=== PATIENT | female | born 1970 | race Caucasian/White ===

== ENCOUNTER 2020-08-26 09:27 | Emergency (ER) | payer OTHER, MEDICAID, SELFPAY ==
--- NOTE | 2020-08-26 09:39 | DI.RAD.S_ITS ---
PROCEDURE: XR FOOT LT MIN 3V INDICATIONS: fall TECHNIQUE: 3 views of the foot were acquired. COMPARISON: [facility], CR, XR FOOT 3VW LT, 03/07/2015, 3:18. FINDINGS: Bones: Nondisplaced fracture of the base of the 5th metatarsal approximately 1.4 centimeters from the base. There is mild adjacent soft tissue swelling. There is questionable hallux valgus on these nonweightbearing views. Mild degenerative changes of the 1st metatarsophalangeal joint with small osseous and soft tissue bunion formation. Soft tissues: No tibiotalar joint effusion. Achilles tendon appears normal. Mild soft tissue swelling adjacent to the base of the 5th metatarsal. IMPRESSION: Nondisplaced proximal 5th metatarsal fracture approximately 1.4 centimeters from the base. Likely mild hallux valgus with mild degenerative changes of the 1st metatarsophalangeal joint along with bunion formation. Dictated by: Nima Kennedy D.O. on 08/26/2020 at 8:54 Approved by: Nima Kennedy D.O. on 08/26/2020 at 8:57
[2020-08-26 09:40] VITALS: BP 184/83; PULSE 86; RESP 14; TEMP 36.3; O2SAT 99
[2020-08-26] MEDS: ACETAMINOPHEN 325 MG TABLET 650 MG PO (10:10)
[2020-08-26] MEDS: IBUPROFEN 400 MG TABLET PO (10:10)
[2020-08-26 11:15] VITALS: PULSE 70
--- NOTE | 2020-08-26 11:18 | ED_ITS ---
HPI - Extremity Injury (Lower) General Chief Complaint: Extremity Injury, Lower Stated Complaint: fell and hurt left foot Time Seen by Provider: 08/26/20 11:17 Source: patient and family Mode of arrival: Wheelchair Limitations: no limitations History of Present Illness HPI Narrative: This a 49-year-old female comes emergency department with complaint of left foot pain, swelling and bruising that occurred last night. Patient states she had fallen asleep in a chair. When she got up she states that her foot did not dorsiflex as it should of and she stepped onto the dorsum of her foot with it rolled underneath and felt a crack and immediate pain. Patient was able to ambulate but was uncomfortable and has become increasingly painful to weight bear. She notes that there is swelling as well as bruising. And she indicates at the proximal 5th metatarsal is her pain. Patient denies any other injuries. She states she does have a history of a spinal injury and is unsure if sleeping in the chair made something awkward but she did not appreciate any numbness or tingling she states that she has been able to fully plantar and dorsiflex her foot without issue. Patient states that she has not had any rapid increase in her back pain. She does have a history of hypothyroidism and states her TSH was in the 130 range and is on medication for this. She states checked regularly. She denies any other symptoms currently. She denies any allergies to medications. She states she is on Suboxone daily and defers any other narcotic pain medications but does ask for prescription for ibuprofen to take in addition to Tylenol. Related Data Previous Rx's Medication Instructions Recorded ibuprofen 600 mg PO Q6H PRN #20 tab 08/26/20 Allergies Allergy/AdvReac Type Severity Reaction Status Date / Time No Known Drug Allergies Allergy Verified 08/26/20 09:42 Review of Systems Review of Systems ROS Unobtainable: All systems reviewed & are unremarkable except as noted in HPI and below Patient History Social History Smoking Status: Current every day smoker Smoking Status: Current every day smoker tobacco type: vaping alcohol intake frequency: 0-2 drinks per day Exam Narrative Exam Narrative: GENERAL: Alert and oriented x three, well-nourished female in mild distress. HEENT: Head normocephalic, atraumatic, EOMI, pupils reactive, face symmetric, moist mucous membranes NECK: Supple, full range of motion EXTREMITIES: Normal range of motion, no clubbing. Patient has tenderness over the proximal 5th metatarsal. Patient has ecchymosis over the 5th metatarsal and dorsum of the mid foot on the lateral side. She does not have any obvious deformity. She has normal sensation with 2+ dorsalis pedis pulse. Patient has normal sensation in all 5 toes with cap refill less than 2 seconds. Neurovascularly intact NEUROLOGICAL: Cranial nerves II through XII grossly intact. Moving all extremities SKIN: Warm, dry, no petechiae, no rashes or lesions otherwise noted. Initial Vital Signs Initial Vital Signs: Vital Signs Temperature 97.4 F L 08/26/20 09:40 Pulse Rate 86 08/26/20 09:40 Respiratory Rate 14 08/26/20 09:40 Blood Pressure 184/83 H 08/26/20 09:40 Pulse Oximetry 99 08/26/20 09:40 Course Orders Ordered: Discontinued Medications Acetaminophen (Acetaminophen 325 Mg Tablet) 650 mg PO NOW ONE Stop: 08/26/20 09:39 Last Admin: 08/26/20 10:10 Dose: 650 mg Documented by: PEDRO Ibuprofen (Ibuprofen 400 Mg Tablet) 400 mg PO NOW ONE Stop: 08/26/20 09:39 Last Admin: 08/26/20 10:10 Dose: 400 mg Documented by: PEDRO Vital Signs Vital signs: Vital Signs - 8 hr 08/26/20 09:40 08/26/20 11:15 Temperature 97.4 F L Pulse Rate 86 Pulse Rate [Left Dorsalis Pedis] 70 Respiratory Rate 14 Blood Pressure 184/83 H Pulse Oximetry 99 MDM - Extremity Injury (Lower) Imaging Data Extremity x-ray #1: Radiologist's Impression: Anjelica Jameson 49 F [address] [id number] ReportSigned Patient: Anjelica JamesonMR#: [id number]: 1970Acct:[id number]/Sex: 49 / FDate of Service: 08/26/20Loc: EDAccession Number: [id number] Procedure: XR foot LT min 3V Ordering Provider: Mank,Lizy C D.O. PROCEDURE: XR FOOT LT MIN 3V INDICATIONS: fall TECHNIQUE: 3 views of the foot were acquired. COMPARISON: [facility], CR, XR FOOT 3VW LT, 03/07/2015, 3:18. FINDINGS: Bones: Nondisplaced fracture of the base of the 5th metatarsal approximately 1.4 centimeters from the base. There is mild adjacent soft tissue swelling. There is questionable hallux valgus on these nonweightbearing views. Mild degenerative changes of the 1st metatarsophalangeal joint with small osseous and soft tissue bunion formation. Soft tissues: No tibiotalar joint effusion. Achilles tendon appears normal. Mild soft tissue swelling adjacent to the base of the 5th metatarsal. IMPRESSION: Nondisplaced proximal 5th metatarsal fracture approximately 1.4 centimeters from the base. Likely mild hallux valgus with mild degenerative changes of the 1st metatarsophalangeal joint along with bunion formation. Dictated by: Nima Kennedy D.O. on 08/26/2020 at 8:54 Approved by: Nima Kennedy D.O. on 08/26/2020 at 8:57 MDM Narrative Medical decision making narrative: 49-year-old female with 5th metatarsal fracture which is nondisplaced and proximal. Patient was placed in walking as she states she will be ambulating a significant amount in the next 3 weeks secondary to moving. Patient was also given crutches. Prescription for ibuprofen and she plans to take Tylenol in addition to her regular Suboxone. Patient was given referral to Orthopedic surgery and all questions were answered. Discharge Plan Departure Patient Disposition: Home Clinical Impression: Closed fracture of fifth metatarsal bone Qualifiers: Encounter type: initial encounter Fracture alignment: nondisplaced Laterality: left Qualified Code(s): S92.355A - Nondisplaced fracture of fifth metatarsal bone, left foot, initial encounter for closed fracture Activity Restrictions/Additional Instructions: Follow-up with Orthopedic surgery in the next week for recheck. Call for an appointment on Friday. Continue home medications as prescribed. You may also take Tylenol up to a 1000 mg every 8 hours. If this is inadequate you may add ibuprofen 600 mg every 6 hours as needed. You may weight bear as tolerated. Use crutches as needed. Splint Care: Keep orthoboot clean and dry. Elevated affected body part to decrease swelling. OK to use ice pack on the affected body part. Use for 15-20 minutes each time, for 5-6x per day. If you develop worsening pain, numbness, tingling, discoloration of the affected body part, Re-adjust the boot, and either see your doctor for an urgent re-assessment, or return to the Emergency Department. Return to the Emergency Department for any new or worsening symptoms. Prescriptions: New ibuprofen 600 mg tablet 600 mg PO Q6H PRN (Reason: pain) Qty: 20 RF: 0 Referrals: Ariel Newsome MD [Physician] -
== END 2020-08-26 12:04 | disposition home or self-care (01) ==
PROVIDERS: Emergency Provider Emergency Medicine
DX: S92.355A Nondisplaced fracture of fifth metatarsal bone, left foot, initial encounter for closed fracture (principal); W19.XXXA Unspecified fall, initial encounter
CPT/HCPCS: 73630; 99283; 99284

== ENCOUNTER 2024-11-15 03:25 | Emergency (ER) | payer OTHER, SELFPAY ==
[2024-11-15 03:31] VITALS: BP 149/81; PULSE 72; RESP 16; TEMP 36.9; O2SAT 98; BMI 22.4
--- NOTE | 2024-11-15 03:43 | ED.GENADULT ---
HPI - General Adult General Chief complaint: Vaginal Bleeding Stated complaint: Vaginal Bleeding, Abdominal Pain Time Seen by Provider: 11/15/24 03:30 History of Present Illness HPI narrative: 53-year-old woman postmenopausal hypothyroidism, on buprenorphine with a history of breast cancer presents with postmenopausal vaginal bleeding. She had been on estrogen receptor juwan post surgery and chemotherapy for her breast cancer. She was on this for about a year but because it caused so many side effects she discontinued. She restarted the juwan approximately 3 months ago and shortly after that had 2 weeks of vaginal bleeding. She stopped the estrogen juwan and was instructed to schedule an appointment with her cooker cleaner. She has not yet gotten around to doing it. Two months later she is now having painful vaginal bleeding, significant cramping but volume it is similar to prior menstrual cycle volumes. She notes that each time she has had episodes of bleeding that has been preceded by intercourse. She is hemodynamically stable, no tachycardia, dyspnea. She has not had spotting in between these 2 episodes of vaginal bleeding. Related Data Home Medications ?Medication ?Instructions ?Recorded ?Confirmed buprenorphine 8 mg-naloxone 2 mg 1 film sublingual DAILY 11/15/24 11/15/24 sublingual film levothyroxine 88 mcg tablet 88 mcg PO DAILY disorder of 11/15/24 11/15/24 thyroid gland Previous Rx's ?Medication ?Instructions ?Recorded naproxen 500 mg tablet 500 mg PO BID #60 tabs 11/15/24 Allergies Allergy/AdvReac Type Severity Reaction Status Date / Time No Known Drug Allergies Allergy Verified 11/15/24 03:29 Patient History tobacco type: vaping alcohol intake frequency: 0-2 drinks per day Exam Initial Vital Signs Initial Vital Signs: General: Alert appropriate in no acute distress Respiratory: Able to speak in full sentences, no obvious respiratory distress Skin: No obvious rashes, warm and dry Neurologic: Grossly intact no obvious asymmetries or abnormalities Psych: appropriate insight and affect, cooperative Medical Decision Making [facility] Narrative Medical decision making narrative: 53-year-old woman with now 2 episodes of postmenopausal vaginal bleeding. Both seemed to be related to being on an off estrogen receptor blockers. She is having increasing cramping but the bleeding volume itself seems similar to previous menstrual cycles. She comes to the emergency room wondering how to best evaluate this. She is in no acute distress, hemodynamically stable. Possibilities include endometrial cancer, simple endometrial hyperplasia, endometrial polyp, cervical pathology with friability after intercourse. We discussed the importance of follow up however she does need to see a operator weapon locating radar and will be best served by having this further evaluated in outpatient setting. We will likely need a pelvic ultrasound and endometrial biopsy. Pelvic ultrasound done at 3:30 a.m. in the morning on Friday morning is not going to provide any additional information that we will change recommendations for outpatient follow up. Did discuss adding 500 mg of naproxen twice a day to help with both volume of bleeding and cramping. She is given phone numbers to follow up with our Gynecology Clinic and will call later today to schedule an appointment. She is safe for discharge Discharge Plan Departure Patient Disposition: Home Clinical Impression: Abnormal vaginal bleeding in postmenopausal patient Instructions: Postmenopausal Bleeding Activity Restrictions/Additional Instructions: Thank you for coming in today Any bleeding postmenopausal certainly needs to be more thoroughly evaluated. Unfortunately I do not have the capacity to do that in the emergency department. You very likely are going to need a pelvic ultrasound and an endometrial biopsy both of which are going to be best done in a gynecology office. There is a possibility of endometrial cancer, an endometrial polyp, a small blood vessel in the surface of your cervix that is bleeding after intercourse. I have given you a prescription for Naprosyn 500 mg to take morning and night. This is similar to ibuprofen, Motrin, Alleve. You should not take these medications if you are also taking Naprosyn. You can combine it with both Suboxone and Tylenol. The Naprosyn helps with the uterine cramping in and also help slow down the vaginal bleeding slightly I would encourage you to contact [facility] on [address] at [phone] and asked to schedule next available appointment with 1 of our gynecologists for further evaluation of postmenopausal bleeding. If you find that you are getting worse or develop any new symptoms, please feel free to return to the emergency department for further evaluation. Prescriptions: New naproxen 500 mg tablet 500 mg PO BID Qty: 60 0RF No Action levothyroxine 88 mcg tablet 88 mcg PO DAILY buprenorphine-naloxone 8-2 mg film 1 film sublingual DAILY Stand Alone Forms: Patient Portal/API
[2024-11-15] MEDS: NAPROXEN 250 MG TABLET 500 MG PO (03:46)
== END 2024-11-15 03:54 | disposition home or self-care (01) ==
PROVIDERS: Emergency Provider Emergency Medicine
DX: N95.0 Postmenopausal bleeding (principal); Z85.3 Personal history of malignant neoplasm of breast
CPT/HCPCS: 99283